=== PATIENT | female | born 1980 | race Caucasian/White ===

== ENCOUNTER 2017-12-02 09:02 | Emergency (ER) | payer BC ==
[~2017-12-02] VITALS: Ht 162.6 cm; Wt 74.8 kg
[~2017-12-02 09:02] MED LIST: CIPRO500 M1 PO; CIPROFLOXACIN500 M1 PO; COMPOUNDED HORMONES; DIFLUCAN150 MG PO; MONISTAT 11 EACH VG; PHENAZOPYRIDIN200 M2 PO; ULTRAM 50MG TAB50 MG PO; WELLBUTRIN SR150 MG; ZOFRAN ODT4 MG PO; ZOLOFT50 MG PO
[2017-12-02 09:26] LABS: URINE BILIRUBIN NEGATIVE (Negative); URINE BLOOD NEGATIVE (Negative); URINE CLARITY CLEAR; URINE COLOR YELLOW; URINE GLUCOSE-RANDOM NEGATIVE (Negative); URINE KETONES NEGATIVE (Negative); URINE LEUKOCYTES-REFLEX NEGATIVE (Negative); URINE NITRITE-REFLEX NEGATIVE (Negative); URINE PROTEIN NEGATIVE (Negative); URINE SPECIFIC GRAVITY 1.015 (1.005-1.030); URINE UROBILINOGEN 0.2 E.U./dl (0.2-1.0)
[2017-12-02 09:38] LABS: ABSOLUTE BASOPHILS 0.1 thou/uL (0.0-0.2); ABSOLUTE EOSINOPHILS 0.2 thou/uL (0.0-0.7); ABSOLUTE LYMPHOCYTES 2.9 thou/uL (0.8-5.3); ABSOLUTE MONOCYTES 0.6 thou/uL (0.0-1.2); ABSOLUTE NEUTROPHILS 8.9 thou/uL (1.6-8.1); BASOPHILS 0.9 %; EOSINOPHILS 1.6 %; HEMATOCRIT 40.1 % (37.0-47.0); HEMOGLOBIN 13.6 gm/dL (12.0-15.0); LYMPHOCYTES 22.6 %; MCH 29.2 pg (26.0-34.0); MCHC 33.9 g/dL (28.0-37.0); MCV 86.1 fL (80.0-100.0); MPV 8.2 fl. (7.2-11.1); NUCLEATED RBCS 0 /100WBC; PLATELET COUNT* 303 thou/uL (150-400); POLYS 69.9 %; RBC 4.65 mil/uL (4.20-5.00); RDW-CV 12.6 % (10.5-14.5); WBC 12.8 thou/uL (4.0-11.0)
[2017-12-02 09:44] LABS: CALCIUM 8.5 mg/dL (8.5-10.1); CREATININE 0.8 mg/dL (0.6-1.3)
[2017-12-02 09:48] LABS: ALBUMIN 3.7 g/dL (3.4-5.0); TOTAL BILIRUBIN 0.4 mg/dL (<0.1-1.0); TOTAL PROTEIN 7.7 g/dL (6.4-8.2)
[2017-12-02 11:29] VITALS: BP 135/82
== END 2017-12-02 11:30 | disposition home or self-care (01) ==
LOC: M.ERS 09:02
PROVIDERS: Family Medicine
DX: R10.9 Unspecified abdominal pain (principal); R11.2 Nausea with vomiting, unspecified; Z87.442 Personal history of urinary calculi; Z90.710 Acquired absence of both cervix and uterus; Z88.1 Allergy status to other antibiotic agents; Z88.5 Allergy status to narcotic agent; Z88.0 Allergy status to penicillin; Z88.2 Allergy status to sulfonamides

== ENCOUNTER 2018-03-29 13:12 | Emergency (ER) | payer BC ==
[~2018-03-29] VITALS: Ht 160 cm; Wt 72.6 kg
[2018-03-29] MEDS ORDERED: TRAMADOL 50 MG50 MG PO ×3 (13:21→16:05)
[2018-03-29 14:03] LABS: ABSOLUTE BASOPHILS 0.1 thou/uL (0.0-0.2); ABSOLUTE EOSINOPHILS 0.1 thou/uL (0.0-0.7); ABSOLUTE LYMPHOCYTES 2.4 thou/uL (0.8-5.3); ABSOLUTE MONOCYTES 0.6 thou/uL (0.0-1.2); ABSOLUTE NEUTROPHILS 6.3 thou/uL (1.6-8.1); BASOPHILS 0.6 %; EOSINOPHILS 1.3 %; HEMATOCRIT 38.6 % (37.0-47.0); HEMOGLOBIN 13.2 gm/dL (12.0-15.0); LYMPHOCYTES 25.2 %; MCH 29.4 pg (26.0-34.0); MCHC 34.2 g/dL (28.0-37.0); MCV 85.9 fL (80.0-100.0); MONOCYTES 5.9 %; MPV 8.8 fl. (7.2-11.1); NUCLEATED RBCS 0 /100WBC; PLATELET COUNT* 299 thou/uL (150-400); RBC 4.49 mil/uL (4.20-5.00); RDW-CV 12.8 % (10.5-14.5); WBC 9.4 thou/uL (4.0-11.0)
[2018-03-29 14:23] LABS: ALBUMIN 3.7 g/dL (3.4-5.0); ALKALINE PHOSPHATASE 66 U/L (46-116); ANION GAP 6 mmol/L (7-16); BUN 11 mg/dL (7-18); CALCIUM 8.5 mg/dL (8.5-10.1); CHLORIDE 103 mmol/L (98-107); CO2 27 mmol/L (21-32); CREATININE 0.7 mg/dL (0.6-1.3); GLUCOSE 82 mg/dL (70-99); SGOT 10 U/L (15-37); SGPT 26 U/L (30-65); SODIUM 136 mmol/L (136-145); TOTAL BILIRUBIN 0.3 mg/dL (<0.1-1.0); TOTAL PROTEIN 7.7 g/dL (6.4-8.2); TROPONIN-I LEVEL <0.06 ng/mL (<0.06)
[2018-03-29] MEDS ORDERED: ROBAXIN 750 MG750 M1 PO (15:45)
[2018-03-29] MEDS ORDERED: NABUMETONE 750750 M1 PO (15:45)
[2018-03-29] MEDS ORDERED: ACETAMINOPHEN-1 EAC1 PO (15:45)
[2018-03-29] MEDS ORDERED: MEDROLDOSEPACK PO (15:45)
[2018-03-29 16:11] VITALS: BP 126/89
--- NOTE | 2018-03-29 17:31 | EKG ---
[place] [address] ELECTROCARDIOGRAM REPORT Name: JUAN LUISPHYLLIS MADERAN Room: [facility]#: [id number] Admission: 03/29/18 Attend Phys: Discharge: 03/29/18 Date of : [birth year] Report #: [id number] THIS REPORT FOR: //name// [facility] ED Test Date: 2018-03-29 Test Time: 13:37:29 Pat Name: PHYLLIS MCKNIGHT Department: Room: Gender: F Refrigeration Specialist: : 1980 Requested By: Tere Tafoya Order Number: [id number] MD: Keith Kebede Measurements Intervals [place] Rate: 67 P: 42 CT: 163 QRS: 21 QRSD: 90 T: 3 QT: 403 QTc: 426 Interpretive Statements Sinus rhythm No previous ECG available for comparison Electronically Signed On 03-29-2018 17:31:24 CDT by Keith Kebede [email or web address] <ELECTRONICALLY SIGNED> By: Keith Kebede MD, [facility] 03/29/18 1731 1337 1337 Keith Kebede MD, FACC /EPI
== END 2018-03-29 16:14 | disposition home or self-care (01) ==
LOC: M.ERS 13:12
PROVIDERS: Nurse Practitioner Family
DX: S29.012A Strain of muscle and tendon of back wall of thorax, initial encounter (principal); R07.89 Other chest pain; R20.0 Anesthesia of skin; R20.2 Paresthesia of skin; R42 Dizziness and giddiness; G43.909 Migraine, unspecified, not intractable, without status migrainosus; Z88.1 Allergy status to other antibiotic agents; Z88.0 Allergy status to penicillin; Z88.2 Allergy status to sulfonamides; Z88.5 Allergy status to narcotic agent; Z90.710 Acquired absence of both cervix and uterus; Z87.442 Personal history of urinary calculi; X58.XXXA Exposure to other specified factors, initial encounter; Y93.89 Activity, other specified; Y92.89 Other specified places as the place of occurrence of the external cause; Y99.8 Other external cause status

== ENCOUNTER → 2018-04-01 | Outpatient (CLI) | payer BC ==
[~2018-04-01] MED LIST changes: +ACETAMINOPHEN-1 EAC1 PO; +MEDROLDOSEPACK PO; +NABUMETONE 750750 M1 PO; +ROBAXIN 750 MG750 M1 PO; +TRAMADOL 50 MG50 MG PO
== END ==
LOC: M.RAD 11:43
DX: M54.2 Cervicalgia (principal)

== ENCOUNTER 2018-07-23 20:24 | Emergency (ER) | payer OTHER ==
[~2018-07-23] VITALS: Ht 162.6 cm; Wt 77.1 kg
[2018-07-23] MEDS ORDERED: CLEOCIN HCL150 MG PO (21:02)
[2018-07-23 21:20] LABS: ABSOLUTE BASOPHILS 0.1 thou/uL (0.0-0.2); ABSOLUTE EOSINOPHILS 0.2 thou/uL (0.0-0.7); ABSOLUTE LYMPHOCYTES 2.9 thou/uL (0.8-5.3); ABSOLUTE MONOCYTES 0.7 thou/uL (0.0-1.2); ABSOLUTE NEUTROPHILS 6.5 thou/uL (1.6-8.1); BASOPHILS 0.8 %; EOSINOPHILS 1.8 %; HEMATOCRIT 33.2 % (37.0-47.0); HEMOGLOBIN 11.4 gm/dL (12.0-15.0); LYMPHOCYTES 27.9 %; MCH 29.4 pg (26.0-34.0); MCHC 34.2 g/dL (28.0-37.0); MCV 85.9 fL (80.0-100.0); MONOCYTES 6.9 %; MPV 8.3 fl. (7.2-11.1); NUCLEATED RBCS 0 /100WBC; PLATELET COUNT* 258 thou/uL (150-400); POLYS 62.6 %; RBC 3.86 mil/uL (4.20-5.00); RDW-CV 12.5 % (10.5-14.5); WBC 10.4 thou/uL (4.0-11.0)
[2018-07-23 21:25] LABS: ANION GAP 11 mmol/L (7-16); BUN 17 mg/dL (7-18); CALCIUM 8.1 mg/dL (8.5-10.1); CHLORIDE 106 mmol/L (98-107); CO2 24 mmol/L (21-32); GLUCOSE 113 mg/dL (70-99); POTASSIUM 3.5 mmol/L (3.5-5.1); SODIUM 141 mmol/L (136-145)
[2018-07-23 21:32] LABS: ALBUMIN 3.2 g/dL (3.4-5.0); ALKALINE PHOSPHATASE 52 U/L (46-116); SGOT 11 U/L (15-37); SGPT 18 U/L (30-65); TOTAL BILIRUBIN 0.3 mg/dL (<0.1-1.0); TOTAL PROTEIN 6.6 g/dL (6.4-8.2); TROPONIN-I LEVEL <0.06 ng/mL (<0.06)
[2018-07-23 22:36] VITALS: BP 113/73
--- NOTE | 2018-07-24 15:39 | EKG ---
[place] [address] ELECTROCARDIOGRAM REPORT Name: JUAN LUISPHYLLISN Room: [facility]#: [id number] Admission: 07/23/18 Attend Phys: Discharge: 07/23/18 Date of : [birth year] Report #: [id number] THIS REPORT FOR: //name// [facility] ED Test Date: 2018-07-23 Test Time: 21:18:11 Pat Name: PHYLLIS MCKNIGHT Department: Room: Gender: F Director Of Operations: JOAN : 1980 Requested By: Alecia Reeves Order Number: [id number] MD: Keith Kebede Measurements Intervals [place] Rate: 70 P: 60 [place]: 166 QRS: 28 QRSD: 84 T: 6 QT: 419 QTc: 453 Interpretive Statements Sinus rhythm Compared to ECG 03/29/2018 13:37:29 No significant changes Electronically Signed On 07-24-2018 15:39:12 [employer] by Keith Kebede [email or web address] <ELECTRONICALLY SIGNED> By: Keith Kebede MD, [facility] 07/24/18 1539 17 Keith Kebede MD, FACC /EPI
== END 2018-07-23 22:42 | disposition home or self-care (01) ==
LOC: M.ERS 20:24
PROVIDERS: Physician Assistant
DX: R51 Headache (principal); K08.89 Other specified disorders of teeth and supporting structures; R20.2 Paresthesia of skin; H92.01 Otalgia, right ear; Z90.710 Acquired absence of both cervix and uterus; Z88.1 Allergy status to other antibiotic agents; Z88.0 Allergy status to penicillin; Z88.5 Allergy status to narcotic agent; Z88.2 Allergy status to sulfonamides; R11.10 Vomiting, unspecified

== ENCOUNTER 2019-01-23 08:02 | Emergency (ER) | payer OTHER ==
[~2019-01-23] VITALS: Ht 162.6 cm; Wt 77.6 kg
[~2019-01-23 08:02] MED LIST changes: +CLEOCIN HCL150 MG PO
[2019-01-23 08:23] LABS: ABSOLUTE BASOPHILS 0.1 thou/uL (0.0-0.2); ABSOLUTE EOSINOPHILS 0.2 thou/uL (0.0-0.7); ABSOLUTE LYMPHOCYTES 2.2 thou/uL (0.8-5.3); ABSOLUTE MONOCYTES 0.5 thou/uL (0.0-1.2); ABSOLUTE NEUTROPHILS 6.3 thou/uL (1.6-8.1); BASOPHILS 0.7 %; EOSINOPHILS 2.4 %; HEMATOCRIT 38.2 % (37.0-47.0); HEMOGLOBIN 13.5 gm/dL (12.0-15.0); LYMPHOCYTES 23.4 %; MCH 29.4 pg (26.0-34.0); MCHC 35.2 g/dL (28.0-37.0); MCV 83.3 fL (80.0-100.0); MONOCYTES 5.5 %; MPV 8.5 fl. (7.2-11.1); NUCLEATED RBCS 0 /100WBC; PLATELET COUNT* 305 thou/uL (150-400); RBC 4.58 mil/uL (4.20-5.00); RDW-CV 12.9 % (10.5-14.5); WBC 9.2 thou/uL (4.0-11.0)
[2019-01-23 08:34] LABS: ANION GAP 6 mmol/L (7-16); BUN 13 mg/dL (7-18); CALCIUM 8.5 mg/dL (8.5-10.1); CHLORIDE 104 mmol/L (98-107); CO2 28 mmol/L (21-32); CREATININE 0.8 mg/dL (0.6-1.3); GLUCOSE 95 mg/dL (70-99); POTASSIUM 3.9 mmol/L (3.5-5.1); SODIUM 138 mmol/L (136-145)
[2019-01-23 08:38] LABS: APTT 28.2 Seconds (25.0-31.3); PROTIME 9.8 Seconds (9.20-11.50)
[2019-01-23 09:07] LABS: ALBUMIN 3.6 g/dL (3.4-5.0); ALKALINE PHOSPHATASE 69 U/L (46-116); CK-MB MASS 0.8 ng/mL (<0.5-3.6); LIPASE 75 U/L (73-393); NT-PRO BRAIN NAT PEPTIDE 11 pg/mL (<300); SGOT 13 U/L (15-37); SGPT 19 U/L (30-65); TOTAL BILIRUBIN 0.4 mg/dL (<0.1-1.0); TOTAL PROTEIN 7.5 g/dL (6.4-8.2); TROPONIN-I LEVEL <0.06 ng/mL (<0.06)
[2019-01-23 09:33] VITALS: BP 129/96
--- NOTE | 2019-01-23 17:07 | EKG ---
[place] [address] ELECTROCARDIOGRAM REPORT Name: PHYLLIS MCKNIGHTN Room: [facility]#: [id number] Admission: 01/23/19 Attend Phys: Discharge: 01/23/19 Date of : [birth year] Report #: [id number] THIS REPORT FOR: //name// [facility] ED Test Date: 2019-01-23 Test Time: 08:07:32 Pat Name: PHYLLIS MCKNIGHT Department: Room: Gender: F Test Preparation Tutor: MALATHI : 1980 Requested By: Zane Andersen Order Number: [id number] MD: Mack Beach Measurements Intervals [place] Rate: 79 P: 57 [place]: 165 QRS: 29 QRSD: 87 T: 9 QT: 394 QTc: 452 Interpretive Statements Sinus rhythm Possible anteroseptal infarct, old Compared to ECG 07/23/2018 21:18:11 Myocardial infarct finding now present Electronically Signed On 01-23-2019 17:07:20 CDT by Mack Beach [email or web address] <ELECTRONICALLY SIGNED> By: Mack Beach MD, [facility] 01/23/19 1707 6 6 Mack Beach MD, [facility] /EPI
== END 2019-01-23 09:30 | disposition home or self-care (01) ==
LOC: M.ERS 08:02
PROVIDERS: Family Medicine
DX: F41.9 Anxiety disorder, unspecified (principal); G43.909 Migraine, unspecified, not intractable, without status migrainosus; Z88.1 Allergy status to other antibiotic agents; Z88.8 Allergy status to other drugs, medicaments and biological substances; Z88.0 Allergy status to penicillin; Z88.2 Allergy status to sulfonamides; Z90.710 Acquired absence of both cervix and uterus; Z87.442 Personal history of urinary calculi

== ENCOUNTER 2019-05-09 01:41 | Emergency (ER) | payer OTHER ==
[~2019-05-09] VITALS: Ht 162.6 cm; Wt 77.1 kg
[2019-05-09] MEDS ORDERED: METHYLPREDNISOLONE (01:51)
[2019-05-09] MEDS ORDERED: CIPRO250 M1 PO (01:52)
[2019-05-09] MEDS ORDERED: DIPHENHIST50 MG PO (01:52)
[2019-05-09] MEDS ORDERED: DOXYCYCLINE 10100 MG PO (02:27)
[2019-05-09 02:50] VITALS: BP 130/88
== END 2019-05-09 02:50 | disposition home or self-care (01) ==
LOC: M.ERS 01:41
DX: L53.9 Erythematous condition, unspecified (principal); G43.909 Migraine, unspecified, not intractable, without status migrainosus; Z88.1 Allergy status to other antibiotic agents; Z88.0 Allergy status to penicillin; Z88.2 Allergy status to sulfonamides; Z88.5 Allergy status to narcotic agent; Z87.442 Personal history of urinary calculi; Z90.710 Acquired absence of both cervix and uterus

== ENCOUNTER 2019-06-12 08:26 | Emergency (ER) | payer OTHER ==
[~2019-06-12] VITALS: Ht 162.6 cm; Wt 72.6 kg
[~2019-06-12 08:26] MED LIST changes: +CIPRO250 M1 PO; +DIPHENHIST50 MG PO; +DOXYCYCLINE 10100 MG PO; +METHYLPREDNISOLONE
[2019-06-12] MEDS ORDERED: PRISTIQ50 M1 PO (08:37)
[2019-06-12 08:44] LABS: URINE BILIRUBIN NEGATIVE (Negative); URINE BLOOD NEGATIVE (Negative); URINE CLARITY CLEAR; URINE COLOR YELLOW; URINE GLUCOSE-RANDOM NEGATIVE (Negative); URINE KETONES NEGATIVE (Negative); URINE LEUKOCYTES-REFLEX NEGATIVE (Negative); URINE NITRITE-REFLEX NEGATIVE (Negative); URINE PROTEIN NEGATIVE (Negative); URINE SPECIFIC GRAVITY 1.015 (1.005-1.030); URINE UROBILINOGEN 0.2 E.U./dl (0.2-1.0)
[2019-06-12 08:59] LABS: ABSOLUTE BASOPHILS 0.1 thou/uL (0.0-0.2); ABSOLUTE EOSINOPHILS 0.1 thou/uL (0.0-0.7); ABSOLUTE LYMPHOCYTES 2.8 thou/uL (0.8-5.3); ABSOLUTE MONOCYTES 0.6 thou/uL (0.0-1.2); ABSOLUTE NEUTROPHILS 4.7 thou/uL (1.6-8.1); BASOPHILS 0.9 %; EOSINOPHILS 0.9 %; HEMATOCRIT 37.7 % (37.0-47.0); HEMOGLOBIN 13.4 gm/dL (12.0-15.0); LYMPHOCYTES 34.2 %; MCH 29.7 pg (26.0-34.0); MCHC 35.5 g/dL (28.0-37.0); MCV 83.7 fL (80.0-100.0); MONOCYTES 7.1 %; MPV 8.5 fl. (7.2-11.1); NUCLEATED RBCS 0 /100WBC; PLATELET COUNT* 309 thou/uL (150-400); POLYS 56.9 %; RBC 4.51 mil/uL (4.20-5.00); RDW-CV 12.9 % (10.5-14.5); WBC 8.2 thou/uL (4.0-11.0)
[2019-06-12 09:04] LABS: CALCIUM 9.3 mg/dL (8.5-10.1); CREATININE 0.9 mg/dL (0.6-1.3); POTASSIUM 3.9 mmol/L (3.5-5.1)
[2019-06-12 09:08] LABS: TOTAL BILIRUBIN 0.4 mg/dL (<0.1-1.0); TOTAL PROTEIN 7.9 g/dL (6.4-8.2)
[2019-06-12] MEDS ORDERED: FLOMAX0.4 MG PO ×2 (10:30→10:48)
[2019-06-12] MEDS ORDERED: PERCOCET 5-3251 EACH PO (10:30)
[2019-06-12] MEDS ORDERED: TORADOL 10 MG T10 MG PO ×2 (10:30→10:48)
[2019-06-12] MEDS ORDERED: CIPROFLOXACIN500 M1 PO (10:30)
[2019-06-12] MEDS ORDERED: MACROBID 100 M100 M1 PO (10:48)
[2019-06-12 10:53] VITALS: BP 126/85
== END 2019-06-12 10:55 | disposition home or self-care (01) ==
LOC: M.ERS 08:26
PROVIDERS: Family Medicine
DX: N20.0 Calculus of kidney (principal); G43.909 Migraine, unspecified, not intractable, without status migrainosus; Z87.442 Personal history of urinary calculi; Z90.710 Acquired absence of both cervix and uterus; Z88.1 Allergy status to other antibiotic agents; Z88.5 Allergy status to narcotic agent; Z88.0 Allergy status to penicillin; Z88.2 Allergy status to sulfonamides

== ENCOUNTER 2020-08-21 23:26 | Inpatient (IN) | payer OTHER ==
[~2020-08-21] VITALS: Ht 162.6 cm; Wt 71.2 kg
[~2020-08-21 23:26] MED LIST changes: +FLOMAX0.4 MG PO; +MACROBID 100 M100 M1 PO; +PERCOCET 5-3251 EACH PO; +PRISTIQ50 M1 PO; +TORADOL 10 MG T10 MG PO
[2020-08-21 23:32] VITALS: BP 145/100
[2020-08-21 23:45] LABS: ABSOLUTE BASOPHILS 0.2 thou/uL (0.0-0.2); ABSOLUTE EOSINOPHILS 0.1 thou/uL (0.0-0.7); ABSOLUTE LYMPHOCYTES 3.8 thou/uL (0.8-5.3); ABSOLUTE MONOCYTES 0.7 thou/uL (0.0-1.2); ABSOLUTE NEUTROPHILS 6.2 thou/uL (1.6-8.1); BASOPHILS 1.5 %; EOSINOPHILS 1.1 %; HEMATOCRIT 38.3 % (37.0-47.0); HEMOGLOBIN 13.5 gm/dL (12.0-15.0); LYMPHOCYTES 34.8 %; MCH 29.4 pg (26.0-34.0); MCHC 35.1 g/dL (28.0-37.0); MCV 83.6 fL (80.0-100.0); MONOCYTES 6.4 %; MPV 8.8 fl. (7.2-11.1); NUCLEATED RBCS 0 /100WBC; PLATELET COUNT* 321 thou/uL (150-400); POLYS 56.2 %; RBC 4.59 mil/uL (4.20-5.00); RDW-CV 12.5 % (10.5-14.5)
[2020-08-21 23:57] LABS: CALCIUM 9.2 mg/dL (8.5-10.1); CREATININE 0.9 mg/dL (0.6-1.3); POTASSIUM 3.5 mmol/L (3.5-5.1)
[2020-08-22 00:01] LABS: ALBUMIN 3.7 g/dL (3.4-5.0); TOTAL BILIRUBIN 0.4 mg/dL (<0.1-1.0); TOTAL PROTEIN 7.5 g/dL (6.4-8.2)
[2020-08-22 04:15] VITALS: BP 115/67
[2020-08-22 04:34] VITALS: BP 118/88
[2020-08-22] MEDS ORDERED: ADDERALL 5 MG TA5 MG PO ×2 (05:43)
[2020-08-22] MEDS ORDERED: MAXALT10 MG PO ×2 (05:44)
[2020-08-22 08:58] LABS: ABSOLUTE EOSINOPHILS 0.1 thou/uL (0.0-0.7); ABSOLUTE LYMPHOCYTES 2.6 thou/uL (0.8-5.3); ABSOLUTE MONOCYTES 0.7 thou/uL (0.0-1.2); ABSOLUTE NEUTROPHILS 7.2 thou/uL (1.6-8.1); BASOPHILS 0.3 %; EOSINOPHILS 0.5 %; HEMATOCRIT 34.9 % (37.0-47.0); HEMOGLOBIN 12.2 gm/dL (12.0-15.0); LYMPHOCYTES 24.1 %; MCH 29.3 pg (26.0-34.0); MCHC 34.8 g/dL (28.0-37.0); MCV 84.1 fL (80.0-100.0); MONOCYTES 6.5 %; MPV 8.5 fl. (7.2-11.1); NUCLEATED RBCS 0 /100WBC; PLATELET COUNT* 284 thou/uL (150-400); POLYS 68.6 %; RBC 4.15 mil/uL (4.20-5.00); RDW-CV 12.4 % (10.5-14.5); WBC 10.6 thou/uL (4.0-11.0)
[2020-08-22 08:59] VITALS: BP 107/74
[2020-08-22 09:05] LABS: PROTIME 9.9 Seconds (9.20-11.50)
[2020-08-22 09:08] LABS: ALBUMIN 3.4 g/dL (3.4-5.0); CALCIUM 8.4 mg/dL (8.5-10.1); CREATININE 0.8 mg/dL (0.6-1.3); POTASSIUM 3.8 mmol/L (3.5-5.1); TOTAL BILIRUBIN 0.6 mg/dL (<0.1-1.0); TOTAL PROTEIN 6.9 g/dL (6.4-8.2)
[2020-08-22 09:09] LABS: INR < 0.9
[2020-08-22 13:49] VITALS: BP 107/74
--- NOTE | 2020-08-22 16:25 | EKG ---
[place] [address] ELECTROCARDIOGRAM REPORT Name: JUAN LUIS,PHYLLIS [place] Room: [address] ADM IN .R.#: [id number] Admission: 08/22/20 Attend Phys: Melania Garcia, Discharge: Date of : 80 Date of Service: 08/21/20 2340 Report #: [id number] THIS REPORT FOR: //name// [facility] ED Test Date: 2020-08-21 Test Time: 23:40:50 Pat Name: PHYLLIS MCKNIGHT Department: Room: [address] Gender: F Dental Officer: ESTEPHANIA MAJORB: 1980 Requested By: Valentine Cho Order Number: [id number] MD: Keith Kebede Measurements Intervals [place] Rate: 69 P: -4 [place]: 122 QRS: 59 QRSD: 80 T: 32 QT: 443 QTc: 475 Interpretive Statements Sinus rhythm Baseline wander in lead(s) II,III,aVR,aVF Compared to ECG 01/23/2019 08:07:32 Myocardial infarct finding no longer present Electronically Signed On 08-22-2020 16:25:17 PHYSIOTHERAPY PRACTICE MANAGER by Keith Kebede [email or web address] <ELECTRONICALLY SIGNED> By: Ketih Kebede MD, FACC 08/22/20 1625 2340 2340 Keith Kebede MD, FACC /EPI
[2020-08-22 18:57] VITALS: BP 134/86
[2020-08-22 21:26] VITALS: BP 130/77
[2020-08-23 00:29] VITALS: BP 106/70
[2020-08-23 04:18] VITALS: BP 109/58
[2020-08-23 08:07] VITALS: BP 108/63
[2020-08-23] MEDS ORDERED: OXYCODONE HCL 55 MG PO ×4 (10:26→11:45)
[2020-08-23] MEDS ORDERED: MACROBID 100 M100 M1 PO ×2 (11:45)
[2020-08-23 12:52] VITALS: BP 108/63
[2020-08-23 13:53] VITALS: BP 108/63
--- NOTE | 2020-08-25 09:48 | OP ---
[address] [address] OPERATIVE REPORT Name: PHYLLIS MCKNIGHT Room: [address]R.#: [id number] Admission: 08/22/20 Attend Phys: Melania Garcia MD Discharge: 08/23/20 Date of : [birth year] Report #: [id number] THIS REPORT FOR: cc: AGUSTÍN LEVI KEVIN ~ Brock, Christie M. DO DATE OF SERVICE: 08/22/2020 PREPROCEDURE DIAGNOSIS: Cholecystitis. POSTPROCEDURE DIAGNOSIS: Acute cholecystitis. FINDINGS: Distended gallbladder with an acute inflammatory plane. SURGEON: Claudia Conklin DO COSURGEON: Deondre Ledezma, PGY-1 SALESPERSON SHOES: GABRIEL Walters PROCEDURE PERFORMED: Laparoscopic cholecystectomy. ANESTHESIA: General endotracheal, local and TAP's block. ESTIMATED BLOOD LOSS: 5 mL. DRAINS: None. SPECIMENS: Gallbladder. COMPLICATIONS: None. CONDITION: Stable. DISPOSITION: PACU to the floor. HISTORY OF PRESENT ILLNESS: The patient is a pleasant 39-year-old female who presented to the ER today with complaint of upper abdominal pain associated with nausea. On CT and ultrasound, she was found to have cholecystitis. She was then consented for laparoscopic cholecystectomy. Risks discussed included bleeding, infection, pain, scar formation, injury to bowel, liver, bile duct, hernia at the incision sites, need for an open procedure and risks of general anesthesia. The patient understood these risks and elected to proceed. DESCRIPTION OF PROCEDURE: The patient was brought to the [place] [address] OPERATIVE REPORT Name: PHYLLIS MCKNIGHT Room: [address] IN [facility].#: [id number] Admission: 08/22/20 Attend Phys: Melania Garcia MD Discharge: 08/23/20 Date of : [birth year] Report #: [id number] was laid supine on the operating room table. SCDs were placed on bilateral lower extremities. Ancef was given in the perioperative period. General endotracheal anesthesia was induced by Anesthesia without difficulty. TAP's blocks were then also provided by Anesthesia without issue. Abdomen was prepped and draped in a standard sterile fashion. Timeout was performed to verify patient and procedure. 10 mL of 0.5% Marcaine were injected in the infraumbilical area. Incision was made at the site of her previous infraumbilical incision with an 11 blade. Cautery was used for hemostasis. S retractors were used to visualize the fascia. Fascia was grasped and elevated between 2 Kochers. Fascia was incised using cautery. Peritoneum was bluntly entered using a Amna clamp. Finger was introduced into the abdomen to assure that there were no juve-incisional adhesions, none were identified. Two stitches of 0 Vicryl were placed on the fascia. Aubree trocar was introduced and secured with 0 Vicryl stitches. Abdomen was insufflated. The patient was placed head up and tilted left side down. Camera was introduced and a brief anterior abdominal exploration was undertaken with findings of a distended gallbladder. Three 5 mm trocars were introduced, one in the subxiphoid area and two in the right upper quadrant, all under direct visualization. Gallbladder was grasped and elevated. There was an obvious acute inflammatory plane around the gallbladder. The peritoneum overlying the triangle of Calot was incised using cautery. Both duct and artery were easily visualized. Both were circumferentially dissected free using a [place] dissector. Any tissues posterior to the artery were removed to the liver plate. This then afforded the critical view. Duct and artery were both doubly clipped and ligated. Gallbladder was then removed from the liver bed with some difficulty utilizing cautery secondary again to this acute inflammatory plane. Specimen was placed within an EndoCatch bag. Liver bed was inspected. There were several small areas of bleeding, which were easily controlled with cautery. Clips were inspected. They appeared to be intact. There was no bleeding or leakage noted at the area of the clips. Trocars were removed under direct visualization. There was no bleeding noted from the peritoneum. Abdomen was completely desufflated. Aubree trocar was removed and EndoCatch bag was removed with the specimen intact. No stones were palpated. Specimen was handed off for permanent pathology. Kochers were placed on the fascia of our infraumbilical port. Previously placed 0 Vicryl stitch was removed and a 0 Vicryl stitch was placed in a [id number]-qwldi fashion with excellent approximation of the fascia. An additional 10 mL of 0.5% Marcaine were injected in the fascia. All wounds were closed with 4-0 Monocryl. A total of 30 mL of 0.5% Marcaine were used to anesthetize the wounds. Wounds were then cleansed and covered with Dermabond. The patient was then allowed to awaken from anesthesia, was extubated and [address] [address] OPERATIVE REPORT Name: PHYLLIS MCKNIGHT Room: [address] [place] M.R.#: [id number] Admission: 08/22/20 Attend Phys: Melania Garcia MD Discharge: 08/23/20 Date of : [birth year] Report #: [id number] transported to the recovery room with no further difficulties. Counts were correct x 2 at the conclusion of the case. <ELECTRONICALLY SIGNED> By: Claudia Conklin DO 08/25/20 0948 1657 1833Csilvio Conklin DO /nt
== END 2020-08-23 13:47 | disposition home or self-care (01) | DRG 419 ==
LOC: M.ERS 23:26 → M.TBA-ER 08-22 01:23 → M.3W 08-22 01:23
PROVIDERS: Emergency Medicine; Internal Medicine Gastroenterology; ADMIT Internal Medicine; ATTEND Internal Medicine
PROC: 0FT44ZZ Resection of Gallbladder, Percutaneous Endoscopic Approach (ICD-10-PCS; principal; 2020-08-22)
DX: K80.00 Calculus of gallbladder with acute cholecystitis without obstruction (principal); Z20.828 Contact with and (suspected) exposure to other viral communicable diseases; F41.9 Anxiety disorder, unspecified; R07.89 Other chest pain; R20.2 Paresthesia of skin; S29.012A Strain of muscle and tendon of back wall of thorax, initial encounter; Z87.442 Personal history of urinary calculi; Z90.710 Acquired absence of both cervix and uterus; G43.909 Migraine, unspecified, not intractable, without status migrainosus; Z88.6 Allergy status to analgesic agent; Z88.1 Allergy status to other antibiotic agents; Z88.0 Allergy status to penicillin; Z88.2 Allergy status to sulfonamides; Z88.8 Allergy status to other drugs, medicaments and biological substances; Z87.891 Personal history of nicotine dependence; X58.XXXA Exposure to other specified factors, initial encounter; Y93.89 Activity, other specified; Y92.89 Other specified places as the place of occurrence of the external cause; Y99.8 Other external cause status

== ENCOUNTER 2020-08-26 05:31 | Emergency (ER) | payer OTHER ==
[~2020-08-26] VITALS: Ht 162.6 cm; Wt 68.0 kg
[~2020-08-26 05:31] MED LIST changes: +ADDERALL 5 MG TA5 MG PO; +MAXALT10 MG PO; +OXYCODONE HCL 55 MG PO
[2020-08-26] MEDS ORDERED: TORADOL 10 MG T10 MG PO (05:47)
[2020-08-26] MEDS ORDERED: ZOFRAN ODT4 MG PO (05:48)
[2020-08-26 05:57] LABS: URINE BILIRUBIN NEGATIVE (Negative); URINE BLOOD TRACE (Negative); URINE CLARITY CLEAR; URINE COLOR YELLOW; URINE GLUCOSE-RANDOM NEGATIVE (Negative); URINE KETONES NEGATIVE (Negative); URINE LEUKOCYTES-REFLEX NEGATIVE (Negative); URINE NITRITE-REFLEX NEGATIVE (Negative); URINE PROTEIN NEGATIVE (Negative); URINE SPECIFIC GRAVITY 1.025 (1.005-1.030); URINE UROBILINOGEN 0.2 E.U./dl (0.2-1.0)
[2020-08-26 06:00] LABS: HEMOGLOBIN 12.5 gm/dL (12.0-15.0); MCH 29.6 pg (26.0-34.0); MCHC 34.7 g/dL (28.0-37.0); MCV 85.2 fL (80.0-100.0); MPV 8.6 fl. (7.2-11.1); RBC 4.23 mil/uL (4.20-5.00); RDW-CV 12.4 % (10.5-14.5)
[2020-08-26 06:08] LABS: CALCIUM 9.5 mg/dL (8.5-10.1); CREATININE 0.8 mg/dL (0.6-1.3); POTASSIUM 3.9 mmol/L (3.5-5.1)
[2020-08-26] MEDS ORDERED: ZOFRAN ODT4 MG SUBLING (08:00)
[2020-08-26] MEDS ORDERED: PERCOCET 5-3251 EACH PO (08:00)
[2020-08-26] MEDS ORDERED: FLOMAX0.4 MG PO (08:00)
[2020-08-26] MEDS ORDERED: CIPROFLOXACIN500 M1 PO (08:00)
[2020-08-26 08:16] VITALS: BP 131/91
== END 2020-08-26 08:18 | disposition home or self-care (01) ==
LOC: M.ERS 05:31
PROVIDERS: Personal Emergency Response Attendant
DX: N20.0 Calculus of kidney (principal); G43.909 Migraine, unspecified, not intractable, without status migrainosus; Z87.442 Personal history of urinary calculi; Z90.710 Acquired absence of both cervix and uterus; Z90.49 Acquired absence of other specified parts of digestive tract; Z88.1 Allergy status to other antibiotic agents; Z88.5 Allergy status to narcotic agent; Z88.0 Allergy status to penicillin; Z88.2 Allergy status to sulfonamides